=== PATIENT | male | born 1935 | race Native Hawaiian/Other Pacific Islander ===

== ENCOUNTER 2016-09-03 14:31 | Outpatient (CLI) | payer OTHER ==
[2016-09-03 14:59] LABS: PLATELET COUNT 206 K/uL (142-355)
[2016-09-03 15:18] LABS: POTASSIUM 4.5 mmol/L (3.6-5.2); SODIUM 139 mmol/L (136-145)
== END 2016-09-03 19:11 | disposition home or self-care (01) ==
LOC: LAB 14:31
PROVIDERS: Nurse Practitioner Family
DX: Z00.00 Encounter for general adult medical examination without abnormal findings (principal); D51.0 Vitamin B12 deficiency anemia due to intrinsic factor deficiency; E55.9 Vitamin D deficiency, unspecified; E78.00 Pure hypercholesterolemia, unspecified; N40.0 Benign prostatic hyperplasia without lower urinary tract symptoms; Z79.899 Other long term (current) drug therapy; Z51.81 Encounter for therapeutic drug level monitoring
CPT/HCPCS: 80053; 80061; 82306; 82607; 83036; 84154; 84439; 84443; 85027

== ENCOUNTER 2017-09-23 13:06 | Outpatient (CLI) | payer OTHER ==
[2017-09-23 13:35] LABS: PLATELET COUNT 196 K/uL (142-355)
[2017-09-23 13:54] LABS: POTASSIUM 4.7 mmol/L (3.6-5.2)
== END 2017-09-23 19:10 | disposition home or self-care (01) ==
LOC: LAB 13:06
PROVIDERS: Nurse Practitioner Family
DX: D51.0 Vitamin B12 deficiency anemia due to intrinsic factor deficiency (principal); F41.8 Other specified anxiety disorders; E78.00 Pure hypercholesterolemia, unspecified; N40.0 Benign prostatic hyperplasia without lower urinary tract symptoms; E55.9 Vitamin D deficiency, unspecified; Z79.899 Other long term (current) drug therapy; Z51.81 Encounter for therapeutic drug level monitoring
CPT/HCPCS: 80053; 80061; 83036; 84154; 84436; 84443; 85027

== ENCOUNTER 2018-11-02 12:55 | Emergency (ER) | payer OTHER ==
[~2018-11-02] VITALS: Ht 185.4 cm; Wt 97.5 kg
[2018-11-02 12:55] VITALS: TEMP 98.3
[2018-11-02] MEDS ORDERED: XANAX XR1 MG PO (13:27)
[2018-11-02 13:28] LABS: PLATELET COUNT 191 K/uL (142-355)
[2018-11-02] MEDS ORDERED: UNITH DIRECT25 MCG PO (13:28)
[2018-11-02 13:35] LABS: POTASSIUM 3.9 mmol/L (3.6-5.2); SODIUM 136 mmol/L (136-145)
[2018-11-02 15:30] VITALS: BP 186/97
== END 2018-11-02 15:34 | disposition home or self-care (01) ==
LOC: ED 13:06
PROVIDERS: Student in an Organized Health Care Education/Training Program
DX: R03.0 Elevated blood-pressure reading, without diagnosis of hypertension (principal); R51 Headache; E07.89 Other specified disorders of thyroid
CPT/HCPCS: 36415; 80053; 81000; 83735; 84443; 84484; 85027; 93005; 99283

== ENCOUNTER 2019-05-11 15:15 | Outpatient (CLI) | payer OTHER ==
[~2019-05-11 15:15] MED LIST: UNITH DIRECT25 MCG PO; XANAX XR1 MG PO
[2019-05-11 15:43] LABS: PLATELET COUNT 193 K/uL (142-355)
[2019-05-11 16:05] LABS: POTASSIUM 4.4 mmol/L (3.6-5.2)
== END 2019-05-11 19:13 | disposition home or self-care (01) ==
LOC: LAB 15:15
PROVIDERS: Nurse Practitioner Family
DX: Z00.00 Encounter for general adult medical examination without abnormal findings (principal); D51.0 Vitamin B12 deficiency anemia due to intrinsic factor deficiency; E55.9 Vitamin D deficiency, unspecified; E78.00 Pure hypercholesterolemia, unspecified; F41.8 Other specified anxiety disorders; N40.0 Benign prostatic hyperplasia without lower urinary tract symptoms; F32.9 Major depressive disorder, single episode, unspecified; Z79.899 Other long term (current) drug therapy
CPT/HCPCS: 80053; 80061; 82306; 83036; 84439; 84443; 84481; 85027

== ENCOUNTER 2021-07-02 13:45 | Outpatient (CLI) | payer OTHER ==
[2021-07-02 14:03] LABS: PLATELET COUNT 167 K/uL (142-355)
[2021-07-02 14:52] LABS: POTASSIUM 3.7 mmol/L (3.6-5.2)
== END 2021-07-02 20:15 | disposition home or self-care (01) ==
LOC: LAB 13:45
PROVIDERS: ATTEND Nurse Practitioner Family
DX: D51.0 Vitamin B12 deficiency anemia due to intrinsic factor deficiency (principal); F41.8 Other specified anxiety disorders; F32.9 Major depressive disorder, single episode, unspecified; E55.9 Vitamin D deficiency, unspecified; G57.93 Unspecified mononeuropathy of bilateral lower limbs; R68.89 Other general symptoms and signs; N40.0 Benign prostatic hyperplasia without lower urinary tract symptoms; E03.8 Other specified hypothyroidism; Z79.899 Other long term (current) drug therapy; E78.49 Other hyperlipidemia; R73.9 Hyperglycemia, unspecified; M25.561 Pain in right knee; I10 Essential (primary) hypertension
CPT/HCPCS: 80053; 80061; 82306; 82607; 83036; 84153; 84439; 84443; 85027

== ENCOUNTER 2022-04-29 11:04 | Outpatient (CLI) | payer OTHER | END 2022-04-29 19:08 | disposition home or self-care (01) | LOC: RAD 11:04 | PROVIDERS: ATTEND Nurse Practitioner Family | DX: M25.561 Pain in right knee (principal) ==